=== PATIENT | female | born 2000 | race African-American/Black ===

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

== ENCOUNTER 2022-05-26 16:47 | Emergency (ER) | payer OTHER ==
[2022-05-26 17:25] VITALS: TEMP 99.1; BMI 30.1
[2022-05-26] MEDS ORDERED: ACETAMINOPHEN 1000 MG/100 ML BAG IVPB ONE (18:07)
[2022-05-26] MEDS ORDERED: LACTATED RINGERS SOLUTION 1000 ML INFUS.BAG IV ONE (18:07)
[2022-05-26] MEDS ORDERED: METOCLOPRAMIDE HCL INJECTION 10 MG/2 ML VIAL IVPB ONE (18:07)
[2022-05-26] MEDS ORDERED: ACETAMINOPHEN INJECTION 100 ML IVPB ONE (18:12)
[2022-05-26] MEDS ORDERED: METOCLOPRAMIDE HCL INJECTION 10 MG/2 ML VIAL ONE (18:13)
[2022-05-26] MEDS ORDERED: SODIUM CHLORIDE 0.9% 500 ML INFUS.BAG IV ONE ×2 (18:14→20:32)
[2022-05-26 18:56] LABS: BASO % 0.2 % (0-2.0); EOS % 0.3 % (0-4.5); HEMATOCRIT 40.9 % (32.4-45.2); HEMOGLOBIN 13.5 GM/dL (10.7-15.3); LYMPH % 7.2 % (8-40); MCH 28.4 pg (25.7-33.7); MCHC 33.1 g/dl (32.0-36.0); MEAN CELL VOLUME 85.8 fl (80-96); MEAN PLT VOLUME 8.6 fl (7.5-11.1); MONO % 4.3 % (3.8-10.2); PLATELET COUNT 406 10^3/uL (134-434); RBC 4.76 M/mm3 (3.60-5.2); RDW 13.9 % (11.6-15.6); WHITE BLOOD COUNT 22.5 K/mm3 (4.0-10.0)
[2022-05-26 19:49] LABS: CALCIUM 9.2 mg/dL (8.5-10.1)
[2022-05-26 19:50] LABS: ALBUMIN 3.5 g/dl (3.4-5.0); BLOOD UREA NITROGEN 7.1 mg/dL (7-18)
[2022-05-26 19:53] LABS: CREATININE 0.8 mg/dL (0.55-1.3)
[2022-05-26 19:55] LABS: BILIRUBIN,TOTAL 0.5 mg/dL (0.2-1); TOT PROT 8.4 g/dl (6.4-8.2)
[2022-05-26] MEDS ORDERED: TRIMETHOBENZAMIDE HCL 200MG/2ML INJ IM ONE (19:55)
[2022-05-26 20:28] LABS: EPI CELLS >36 /uL (0-25.1); HYALINE CASTS 3 /uL (0-3.1); URINE APPEARANCE CLEAR; URINE BACTERIA 3045 /uL (0-1359); URINE BILIRUBIN NEGATIVE (NEGATIVE); URINE COLOR DK YELLOW; URINE GLUCOSE (UA) NEGATIVE (NEGATIVE); URINE KETONE 2+ (NEGATIVE); URINE LEUK ESTERASE NEGATIVE (NEGATIVE); URINE NITRITE NEGATIVE (NEGATIVE); URINE PROTEIN 1+ (NEGATIVE); URINE WBC 42 /uL (0-25.8)
[2022-05-26 20:42] LABS: URINE RBC 85 /uL (0-23.9)
[2022-05-26 21:11] LABS: ANISOCYTOSIS 0; MACROCYTOSIS 0
[2022-05-26 22:28] VITALS: BP 118/72; PULSE 98; RESP 20
== END 2022-05-26 22:36 | disposition home or self-care (01) ==
LOC: JERFT 16:47
PROC: 3E0333Z Introduction of Anti-inflammatory into Peripheral Vein, Percutaneous Approach (ICD-10-PCS; principal; 2022-05-26)
PROC: 3E033GC Introduction of Other Therapeutic Substance into Peripheral Vein, Percutaneous Approach (ICD-10-PCS; 2022-05-26)
DX: D72.829 Elevated white blood cell count, unspecified (principal); N39.0 Urinary tract infection, site not specified; R10.84 Generalized abdominal pain
CPT/HCPCS: 0241U-QW; 36415; 71046-TC-FY; 71275-TC; 80053; 81003; 83690; 84703; 85025; 85379; 87070; 87077; 87086; 87651; 93005; 93010; 99285-25; Q9967

== ENCOUNTER 2023-05-02 19:18 | Inpatient (IN) | payer OTHER ==
[2023-05-02 19:32] VITALS: BMI 33.4
[2023-05-02] MEDS ORDERED: ONDANSETRON 4 MG/2 ML VIAL ONE (20:40)
[2023-05-02] MEDS ORDERED: ACETAMINOPHEN INJECTION 100 ML IVPB ONE (20:40)
[2023-05-02] MEDS: SODIUM CHLORIDE 1,000 ML IV STA (21:07)
[2023-05-02] MEDS: ACETAMINOPHEN 1000 MG/100 ML BAG IVPB ONE (21:08)
[2023-05-02] MEDS: ONDANSETRON 4 MG/2 ML VIAL IVPUSH ONE (21:08)
[2023-05-02 21:24] LABS: BASO % 0.2 % (0-2.0); HEMATOCRIT 34.8 % (32.4-45.2); HEMOGLOBIN 11.6 GM/dL (10.7-15.3); LYMPH % 2.5 % (8-40); MCH 28.4 pg (25.7-33.7); MCHC 33.4 g/dl (32.0-36.0); MEAN CELL VOLUME 84.9 fl (80-96); MEAN PLT VOLUME 8.5 fl (7.5-11.1); MONO % 3.6 % (3.8-10.2); NEUT % 93.7 % (42.8-82.8); PLATELET COUNT 357 10^3/uL (134-434); RDW 14.2 % (11.6-15.6); WHITE BLOOD COUNT 24.1 K/mm3 (4.0-10.0)
[2023-05-02 21:42] LABS: CALCIUM 9.1 mg/dL (8.5-10.1); INR 1.32 (0.83-1.09); PROTHROMBIN TIME (PATIENT) 15.3 SEC (9.7-13.0)
[2023-05-02 21:43] LABS: ALBUMIN 3.3 g/dl (3.4-5.0); BLOOD UREA NITROGEN 6.2 mg/dL (7-18)
[2023-05-02 21:45] LABS: ACTIVATED PTT 24.8 SECONDS (25.2-36.5)
[2023-05-02 21:46] LABS: CREATININE 0.9 mg/dL (0.55-1.3)
[2023-05-02 21:47] LABS: BILIRUBIN,TOTAL 0.7 mg/dL (0.2-1)
[2023-05-02] MEDS ORDERED: DEXAMETHASONE SOD PHOSPHATE 10 MG/1 ML VIAL ONE (22:39)
[2023-05-02] MEDS: DEXAMETHASONE LIQUID 0.5 MG/5 ML PO ONE (22:46)
[2023-05-02 22:57] LABS: EPI CELLS >36 /uL (0-25.1); HYALINE CASTS 6 /uL (0-3.1); URINE APPEARANCE CLOUDY; URINE BACTERIA 2848 /uL (0-1359); URINE BILIRUBIN NEGATIVE (NEGATIVE); URINE COLOR YELLOW; URINE GLUCOSE (UA) NEGATIVE (NEGATIVE); URINE KETONE 4+ (NEGATIVE); URINE LEUK ESTERASE TRACE (NEGATIVE); URINE NITRITE NEGATIVE (NEGATIVE); URINE PROTEIN 1+ (NEGATIVE); URINE RBC 64 /uL (0-23.9); URINE WBC 129 /uL (0-25.8)
[2023-05-02 22:58] LABS: HCG,QUALITATIVE URINE Negative
[2023-05-02] MEDS ORDERED: CEFTRIAXONE 1 GM/50 ML BAG ONE (23:09)
[2023-05-02] MEDS: CEFTRIAXONE 1,000 MG in DEXTROSE 5%-WATER - 50 ML IVPB ONE (23:27)
[2023-05-02] MEDS: SODIUM CHLORIDE 0.9% 500 ML INFUS.BAG IV ONE (23:27)
[2023-05-03 00:56] VITALS: RESP 18
[2023-05-03] MEDS ORDERED: ONDANSETRON 4 MG/2 ML VIAL IVPUSH PRN (01:48)
[2023-05-03] MEDS: SODIUM CHLORIDE 1,000 ML IV SCH (02:40)
[2023-05-03] MEDS ORDERED: ACETAMINOPHEN INJECTION 100 ML IVPB ONE (05:55)
[2023-05-03] MEDS: ACETAMINOPHEN 1000 MG/100 ML BAG IVPB PRN (06:03)
[2023-05-03 08:40] LABS: HEMATOCRIT 34.5 % (32.4-45.2); HEMOGLOBIN 11.3 GM/dL (10.7-15.3); MCH 28.1 pg (25.7-33.7); MCHC 32.7 g/dl (32.0-36.0); MEAN CELL VOLUME 85.7 fl (80-96); MEAN PLT VOLUME 8.9 fl (7.5-11.1); PLATELET COUNT 361 10^3/uL (134-434); RBC 4.02 M/mm3 (3.60-5.2); RDW 14.2 % (11.6-15.6); WHITE BLOOD COUNT 24.6 K/mm3 (4.0-10.0)
[2023-05-03 08:52] LABS: ALBUMIN 3.1 g/dl (3.4-5.0); BLOOD UREA NITROGEN 4.5 mg/dL (7-18); CALCIUM 8.2 mg/dL (8.5-10.1); MAGNESIUM 1.7 mg/dL (1.8-2.4)
[2023-05-03 08:55] LABS: CREATININE 0.8 mg/dL (0.55-1.3); PHOSPHOROUS 2.4 mg/dL (2.5-4.9)
[2023-05-03 08:57] LABS: BILIRUBIN,TOTAL 0.4 mg/dL (0.2-1); TOT PROT 7.3 g/dl (6.4-8.2)
[2023-05-03 09:10] VITALS: BP 96/60; PULSE 84; TEMP 98.3
[2023-05-03] MEDS ORDERED: MAGNESIUM OXIDE 400 MG TABLET (FP) ONE (09:42)
[2023-05-03] MEDS ORDERED: KETOROLAC TROMETHAMINE 15 MG/ML VIAL ONE (09:42)
[2023-05-03] MEDS ORDERED: CEFTRIAXONE 1 GM/50 ML BAG ONE (09:43)
[2023-05-03] MEDS: MAGNESIUM OXIDE 400 MG TABLET (FP) PO SCH (09:46)
[2023-05-03] MEDS: CEFTRIAXONE 1 GM in DEXTROSE 5%-WATER - 50 ML IVPB SCH (09:46)
[2023-05-03] MEDS: KETOROLAC TROMETHAMINE 15 MG/ML VIAL IVPUSH PRN (09:47)
[2023-05-03] MEDS ORDERED: AMOX TR/POT CLAV 875MG/125MG TABLETS (FP) PO SCH (17:30)
== END 2023-05-03 14:38 | disposition home or self-care (01) | DRG 153 ==
LOC: JER 19:18 → JERBED 23:46
PROVIDERS: ADMIT Internal Medicine; ATTEND Nurse Practitioner Acute Care
DX: J02.0 Streptococcal pharyngitis (principal); R50.9 Fever, unspecified; D72.829 Elevated white blood cell count, unspecified
CPT/HCPCS: 0241U-QW; 36415; 71046-TC-FY; 74177-TC; 80053; 81003; 83690; 83735; 84100; 84703; 85025; 85027; 85610; 85730; 87040; 87070; 87077; 87086; 99285-25; J0131; Q9967

== ENCOUNTER 2023-05-23 23:08 | Emergency (ER) | payer OTHER ==
[2023-05-23 23:28] VITALS: BP 103/59; RESP 18; TEMP 99.6; BMI 32.1
[2023-05-24] MEDS ORDERED: KETOROLAC TROMETHAMINE 30 MG/1 ML VIAL ONE (00:33)
[2023-05-24] MEDS: KETOROLAC TROMETHAMINE 30 MG/1 ML VIAL IM ONE (00:36)
[2023-05-24 01:29] VITALS: PULSE 97
== END 2023-05-24 02:53 | disposition home or self-care (01) ==
LOC: JER 23:08
PROC: 3E0233Z Introduction of Anti-inflammatory into Muscle, Percutaneous Approach (ICD-10-PCS; principal; 2023-05-24)
DX: R10.2 Pelvic and perineal pain (principal); R53.1 Weakness; B00.1 Herpesviral vesicular dermatitis
CPT/HCPCS: 36415; 87255; 99284-25

== ENCOUNTER 2024-07-11 07:12 | Day surgery (SDC) | payer OTHER ==
[2024-07-09 13:36] VITALS: BMI 27.1
[2024-07-11 07:45] VITALS: PULSE 74; RESP 18
[2024-07-11] MEDS ORDERED: PROPOFOL 160 ML ONE (07:51)
[2024-07-11] MEDS ORDERED: LIDOCAINE HCL/PF 2% SDV 5ML VIAL ONE (07:51)
[2024-07-11 12:34] VITALS: BP 130/58; TEMP 98
== END 2024-07-11 09:52 | disposition home or self-care (01) ==
LOC: FASU-ENDO 07:12
PROVIDERS: ATTEND Internal Medicine Gastroenterology
PROC: 0DJD8ZZ Inspection of Lower Intestinal Tract, Via Natural or Artificial Opening Endoscopic (ICD-10-PCS; principal; 2024-07-11 08:52)
DX: K62.5 Hemorrhage of anus and rectum (principal); K64.8 Other hemorrhoids; K62.89 Other specified diseases of anus and rectum
CPT/HCPCS: 81025